=== PATIENT | male | born 2000 | race Caucasian/White ===

== ENCOUNTER 2020-08-09 11:14 | Emergency (ER) | payer OTHER ==
[~2020-08-09] VITALS: Ht 185.4 cm; Wt 79.4 kg
[2020-08-09] MEDS ORDERED: L-THEANINE200 MG PO (12:10)
[2020-08-09] MEDS ORDERED: METFORMIN HCL500 MG PO (12:11)
[2020-08-09] MEDS ORDERED: BUSPIRONE HCL10 MG PO (12:12)
[2020-08-09] MEDS ORDERED: HYDROXYZINE HCL25 MG PO (12:12)
[2020-08-09] MEDS ORDERED: PROPRANOLOL HCL20 MG PO (12:12)
[2020-08-09] MEDS ORDERED: ZYPREXA10 MG PO (12:13)
--- NOTE | 2020-08-09 21:26 | EKG ---
[facility] [address] [facility] [place] [address] Signed Normal sinus rhythm Possible Acute pericarditis Abnormal ECG No previous ECGs available Confirmed by VERA HOOD MD ([id number]) on 08/09/2020 9:25:55 PM Electronically Signed By: VERA HOOD MD 08/09/202125 PATIENT NAME: ALESHA MARTIN Electrocardiogram DATE OF : [birth year] PHYSICIAN: VERA HOOD MD REPORT #: [id number] REPORT IS CONFIDENTIAL AND NOT TO BE RELEASED WITHOUT AUTHORIZATION
== END 2020-08-09 16:08 | disposition home or self-care (01) ==
LOC: ED 11:14
DX: F12.929 Cannabis use, unspecified with intoxication, unspecified (principal)
CPT/HCPCS: 70450; 80053; 81001; 85025; 93005; 93010; 99285-25